=== PATIENT | male | born 1990 | race Caucasian/White ===

== ENCOUNTER 2016-10-30 03:05 | Emergency (ER) | payer SELFPAY ==
[2016-10-30 03:14] VITALS: BP 129/86
[2016-10-30] MEDS ORDERED: DEXAMETHASONE 10 MG/ML VIAL PO STA (03:21)
[2016-10-30] MEDS ORDERED: SULFAMETH/TRIMETH DS 800/160 MG TABLET PO STA (03:21)
[2016-10-30] MEDS ORDERED: DEXAMETHASONE 10 MG/ML VIAL ONE (03:35)
[2016-10-30] MEDS ORDERED: SULFAMETH/TRIMETH DS 800/160 MG TABLET PO ONE (03:35)
--- NOTE | 2016-10-30 03:37 | ED Physician Documentation ---
PD HPI SKIN - Stated complaint Stated Complaint: LEG PX - Chief complaint Chief Complaint: General - History obtained from History obtained from: Patient, Family - History of Present Illness Timing - onset: How many weeks ago (3) Timing - duration: Weeks (3) Timing - details: Gradual onset, Still present Location: RUE, LUE, RLE, LLE Quality / character: Itchy, Painful, Discolored, Raised, Vesicular, Swelling, Draining Associated symptoms: No: Fever, Myalgias, Joint pain, Headache, Facial swelling Contributing factors: Insect bite /sting Similar symptoms before: Has not had sx before Recently seen: Not recently seen - Additional information Additional information: 26-year-old male has developed multiple bites to his lower calves and upper arms to the exposed areas of his body. He does believe the animal in his house is infested with fleas. He has developed pus and drainage from some of the lesions and he has not been able to sleep secondary to the itching. Review of Systems Constitutional: denies: Fever Respiratory: denies: Cough GI: denies: Vomiting : denies: Dysuria Skin: reports: Rash, Bite / sting Musculoskeletal: denies: Neck pain, Back pain, Extremity pain PD PAST MEDICAL HISTORY - Past Medical History Musculoskeletal: Other - Past Surgical History Past Surgical History: No - Present Medications Home Medications: Ambulatory Orders Medication Instructions Recorded Confirmed Sulfamethoxazole/Trimethoprim 1 each PO BID #14 tablet 10/30/16 [Sulfamethoxazole-Tmp Ds Tablet] - Allergies Allergies/Adverse Reactions: Allergies Allergy/AdvReac Type Severity Reaction Status Date / Time Penicillins Allergy vomiting Verified 04/11/13 08:37 - Social History Does the pt smoke?: No Smoking Status: Never smoker Does the pt drink ETOH?: Yes Does the pt have substance abuse?: No - Immunizations Immunizations are current?: Yes - POLST Patient has POLST: No PD ED PE NORMAL - Vitals Vital signs reviewed: Yes (hypertensive ) - General General: No acute distress, Well developed/nourished - HEENT HEENT: Atraumatic, PERRL - Respiratory Respiratory: No respiratory distress - Derm Derm: Normal color, Warm and dry, Other (There are multiple 3-5mm pustules over the calves and forearms with surrounding erythema and some are draining. ) - Extremities Extremities: No deformity, No edema - Neuro Neuro: No motor deficit, No sensory deficit - Psych Psych: Normal mood, Normal affect Results - Vitals Vitals: Vital Signs - 24 hr 10/30/16 03:12 Temperature 36.9 C Heart Rate 80 Respiratory 18 Rate Blood Pressure 129/86 H O2 Saturation 98 Oxygen O2 Source Room air PD MEDICAL DECISION MAKING - ED course Complexity details: considered differential, d/w patient, d/w family ED course: 26-year-old male looks to have flea bites that he has had reaction to some appear to be infected. In the emergency department he is given a dose of dexamethasone and he is instructed use Zyrtec or Elisabeth for the general treatment and is instructed to treat the animals in his home for fleas. Departure - Departure Disposition: Home, Self Care Clinical Impression: Papular urticaria Condition: Stable Instructions: ED Bite Sting Insect Local Allergic React, ED Sting Bite Insect Infec Follow-Up: [facility] [Provider Group] Prescriptions: Sulfamethoxazole/Trimethoprim [Sulfamethoxazole-Tmp Ds Tablet] 1 each PO BID # 14 tablet Comments: It looks like you have developed an allergic reaction to the flea bites and there is some infection as well. Treat the animals in the house for fleas and use elisabeth or zyrtec for itching and allergic reaction.
== END 2016-10-30 03:54 | disposition home or self-care (01) ==
LOC: ED 03:05
DX: L50.8 Other urticaria (principal)
CPT/HCPCS: 99283; A9270

== ENCOUNTER 2020-03-17 17:11 | Outpatient (CLI) | payer OTHER | END 2020-03-17 17:12 | disposition home or self-care (01) | LOC: COV 17:11 | PROVIDERS: ATTEND Family Medicine | DX: Z20.828 Contact with and (suspected) exposure to other viral communicable diseases (principal) ==

== ENCOUNTER 2020-08-15 02:12 | Emergency (ER) | payer SELFPAY ==
[2020-08-15 02:35] LABS: BILIRUBIN,URINE NEGATIVE (NEGATIVE); CLARITY,URINE CLEAR (CLEAR); GLUCOSE, URINE (UA) NEGATIVE (NEGATIVE); KETONES,URINE (UA) NEGATIVE (NEGATIVE); LEUKOCYTE ESTERASE, URINE NEGATIVE (NEGATIVE); NITRITE,URINE NEGATIVE (NEGATIVE); OCCULT BLOOD,URINE NEGATIVE (NEGATIVE); PROTEIN,URINE NEGATIVE (NEGATIVE); UROBILINOGEN,URINE 0.2 (NORMAL) E.U./dL (NORMAL)
--- NOTE | 2020-08-15 02:43 | ED Physician Documentation ---
PD HPI ABD PAIN - Stated complaint Stated Complaint: ADB PX, NAUSEA, MIGRANE - Chief complaint Chief Complaint: Abd Pain - History obtained from History obtained from: Patient - History of Present Illness Timing - onset: How many days ago (3) Timing - details: Gradual onset, Intermittant, Waxing and waning Pain level max: 5 Pain level now: 2 Quality: Pain Location: RUQ, Epigastric, LUQ Radiation: No: Chest, , Lower back, Left flank, Left shoulder, Right flank, Right shoulder, Upper back Improved by: Other (no ameliorating factors) Worsened by: Other (no exacerbating factors) Associated symptoms: Nausea. No: Fever, Vomiting, Diarrhea, Constipation Similar symptoms before: Has not had sx before Recently seen: Not recently seen - Additional information Additional information: c/o upper abdominal pain, episodic x 3 days with generalized headache. denies fever. nausea but no vomiting. no exacerbating nor ameliorating factors Review of Systems Constitutional: reports: Reviewed and negative Cardiac: reports: Reviewed and negative Respiratory: reports: Reviewed and negative GI: reports: Abdominal Pain, Nausea. denies: Abdominal Swelling, Vomiting, Constipation, Diarrhea : denies: Dysuria, Frequency Musculoskeletal: denies: Back pain Neurologic: reports: Headache PD PAST MEDICAL HISTORY - Past Medical History Past Medical History: Yes Cardiovascular: None Respiratory: None Neuro: None Endocrine/Autoimmune: None GI: None : None HEENT: None Psych: None Musculoskeletal: Other Derm: None - Past Surgical History Past Surgical History: No - Present Medications Home Medications: Ambulatory Orders Medication Instructions Recorded Confirmed No Known Home Medications 08/15/20 08/15/20 - Allergies Allergies/Adverse Reactions: Allergies Allergy/AdvReac Type Severity Reaction Status Date / Time Penicillins Allergy vomiting Verified 08/15/20 02:24 - Social History Does the pt smoke?: No Smoking Status: Never smoker Does the pt drink ETOH?: Yes Does the pt have substance abuse?: No - Immunizations Immunizations are current?: Yes - POLST Patient has POLST: No PD ED PE NORMAL - Vitals Vital signs reviewed: Yes - General General: Alert and oriented X 3, No acute distress, Well developed/nourished - Cardiac Cardiac: RRR, No murmur - Respiratory Respiratory: No respiratory distress, Clear bilaterally - Abdomen Abdomen: Soft, Non tender - Back Back: No CVA TTP - Derm Derm: Normal color, Warm and dry, No rash Results - Vitals Vitals: Oxygen O2 Source Room air - Labs Labs: Laboratory Tests 08/15/20 08/15/20 08/15/20 02:30 03:05 03:05 WBC 9.2 RBC 5.60 Hgb 14.4 Hct 44.3 MCV 79.1 L MCH 25.7 L MCHC 32.5 RDW 13.5 Plt Count 235 MPV 10.6 Neut # (Auto) 5.5 Lymph # (Auto) 2.3 [place] # (Auto) 0.8 Eos # (Auto) 0.4 Baso # (Auto) 0.1 Absolute Nucleated RBC 0.00 Nucleated RBC % 0.0 Sodium 137 Potassium 3.9 Chloride 100 L Carbon Dioxide 28 Anion Gap 9.0 BUN 11 Creatinine 0.8 Estimated GFR (MDRD) 114 Glucose 114 H Calcium 9.4 Total Bilirubin 0.7 AST 25 ALT 37 Alkaline Phosphatase 61 Total Protein 7.8 Albumin 4.2 Globulin 3.6 Albumin/Globulin Ratio 1.2 Lipase 22 Urine Color YELLOW Urine Clarity CLEAR Urine pH 6.0 Ur Specific [place] 1.020 Urine Protein NEGATIVE Urine Glucose (UA) NEGATIVE Urine Ketones NEGATIVE Urine Occult Blood NEGATIVE Urine Nitrite NEGATIVE Urine Bilirubin NEGATIVE Urine Urobilinogen 0.2 (NORMAL) Ur Leukocyte Esterase NEGATIVE Ur Microscopic Review NOT INDICATED Urine Culture Comments NOT INDICATED PD MEDICAL DECISION MAKING - ED course Complexity details: reviewed results, re-evaluated patient, considered differential, d/w patient ED course: normal blood work including CBC, LFTs. also normal UA. GB visualized on bedside US by me, it is not dilated, there is no sonographic [employer] sign, and no visualized calculi. discharged with abdominal pain unknown origin instructions, will return if worse, f/u with PMD for further testing if symptoms persist or recur Departure - Departure Disposition: 01 Home, Self Care Clinical Impression: Abdominal pain Condition: Good Instructions: ED Abdominal Pain Unkn Cause Male Follow-Up: Ailyn Naylor ARNP [Physician No Access] - Within 1 week Discharge Date/Time: 08/15/20 04:31
[2020-08-15 03:08] LABS: BASOPHILS # (AUTO) 0.1 10^3/uL (0.0-0.1); BASOPHILS % (AUTO) 0.8 %; EOSINOPHILS # (AUTO) 0.4 10^3/uL (0.0-0.7); EOSINOPHILS % (AUTO) 4.3 %; HCT - HEMATOCRIT 44.3 % (42.0-52.0); HGB - HEMOGLOBIN 14.4 g/dL (14.0-18.0); LYMPHOCYTES # (AUTO) 2.3 10^3/uL (1.5-3.5); LYMPHOCYTES % (AUTO) 25.3 %; MEAN CORPUSCULAR HEMOGLOBIN 25.7 pg (27.0-31.0); MEAN CORPUSCULAR HGB CONC 32.5 g/dL (32.0-36.0); MEAN CORPUSCULAR VOLUME 79.1 fL (80.0-94.0); MEAN PLATELET VOLUME 10.6 fL (7.4-11.4); MONOCYTES # (AUTO) 0.8 10^3/uL (0.0-1.0); NEUTROPHILS # (AUTO) 5.5 10^3/uL (1.5-6.6); NEUTROPHILS % (AUTO) 60.4 %; PLT - PLATELET COUNT 235 10^3/uL (130-450); RED CELL DISTRIBUTION WIDTH 13.5 % (12.0-15.0); WHITE BLOOD COUNT 9.2 x10^3/uL (4.8-10.8)
[2020-08-15 03:21] LABS: ALBUMIN 4.2 g/dL (3.2-5.5); ALBUMIN/GLOBULIN RATIO 1.2 (1.0-2.2); BILIRUBIN,TOTAL 0.7 mg/dL (0.2-1.0); CALCIUM 9.4 mg/dL (8.5-10.3); CREATININE 0.8 mg/dL (0.6-1.2); POTASSIUM 3.9 mmol/L (3.5-5.0); TOTAL PROTEIN 7.8 g/dL (6.7-8.2)
[2020-08-15] MEDS ORDERED: HYDROcod/ACET 5/325 Prepack 4 PO STA (04:09)
[2020-08-15] MEDS ORDERED: KETOROLAC 60 MG/2 ML VIAL IM STA (04:09)
[2020-08-15] MEDS ORDERED: PANTOPRAZOLE 40 MG TABLET PO STA (04:09)
[2020-08-15 04:27] VITALS: BP 136/94
== END 2020-08-15 04:31 | disposition home or self-care (01) ==
LOC: ED 02:12
DX: R10.11 Right upper quadrant pain (principal); R10.12 Left upper quadrant pain; R10.13 Epigastric pain; R11.0 Nausea; R51.9 Headache, unspecified
CPT/HCPCS: 36415; 80053; 81003; 83690; 85025; 96372; 99283; 99284; A9270; 81001; 87086

== ENCOUNTER 2023-07-06 09:36 | Outpatient (CLI) | payer OTHER ==
--- NOTE | 2023-07-06 11:24 | XRAY Report ---
PROCEDURE: Hip w/Pelvis 2-3V RT INDICATIONS: PAIN IN RIGHT HIP TECHNIQUE: 2 views of the hip were acquired. COMPARISON: None. FINDINGS: Bones: No fractures or dislocations. No suspicious bony lesions. Soft tissues: No suspicious soft tissue calcifications or masses. IMPRESSION: No acute or chronic appearing bony abnormality. Reviewed by: Rashida Nelson MD on 07/06/2023 11:22 AM PDT Approved by: Rashida Nelson MD on 07/06/2023 11:22 AM PDT Station ID: [id number]
== END 2023-07-06 09:37 | disposition home or self-care (01) ==
LOC: DI.N 09:36
PROVIDERS: ATTEND Nurse Practitioner
DX: M25.551 Pain in right hip (principal)